=== PATIENT | female | born 1995 | race Two or more races ===

== ENCOUNTER 2019-03-21 15:48 | Emergency (ER) | payer MEDICAID, OTHER ==
[~2019-03-21] VITALS: Ht 162.6 cm; Wt 72.6 kg
[2019-03-21 15:55] VITALS: BP 138/71
== END 2019-03-21 16:42 | disposition home or self-care (01) ==
LOC: ER 15:48
DX: S90.111A Contusion of right great toe without damage to nail, initial encounter (principal); Z88.5 Allergy status to narcotic agent; W50.0XXA Accidental hit or strike by another person, initial encounter; Y93.66 Activity, soccer; Y99.8 Other external cause status; Y92.89 Other specified places as the place of occurrence of the external cause
CPT/HCPCS: 73630

== ENCOUNTER 2020-03-23 10:49 | Emergency (ER) | payer MEDICAID ==
[~2020-03-23] VITALS: Ht 162.6 cm; Wt 70.8 kg
[2020-03-23 14:33] VITALS: BP 117/75
== END 2020-03-23 15:02 | disposition home or self-care (01) ==
LOC: ER 10:49
DX: Z30.430 Encounter for insertion of intrauterine contraceptive device (principal); N83.202 Unspecified ovarian cyst, left side; Z88.5 Allergy status to narcotic agent
CPT/HCPCS: 76830; 76856

== ENCOUNTER 2022-04-30 20:37 | Emergency (ER) | payer MEDICAID ==
[~2022-04-30] VITALS: Ht 162.6 cm; Wt 88.6 kg
[2022-04-30 22:57] VITALS: BP 116/64
[2022-04-30] MEDS ORDERED: IBUPROFEN 800 MG TAB PO ONE (23:30)
== END 2022-05-01 01:09 | disposition left against medical advice (07) ==
LOC: ER 20:37
DX: S93.401A Sprain of unspecified ligament of right ankle, initial encounter (principal); Z88.6 Allergy status to analgesic agent; W22.8XXA Striking against or struck by other objects, initial encounter; Y93.89 Activity, other specified; Y92.89 Other specified places as the place of occurrence of the external cause; Y99.8 Other external cause status
CPT/HCPCS: 73610

== ENCOUNTER 2024-04-29 03:34 | Emergency (ER) | payer MEDICAID ==
[~2024-04-29] VITALS: Ht 162.6 cm; Wt 85.5 kg
[2024-04-29 04:11] VITALS: BP 132/84; PULSE 100; RESP 16; TEMP 97.8; O2SAT 98
== END 2024-04-29 05:05 | disposition home or self-care (01) ==
LOC: ER 03:34
DX: T19.2XXA Foreign body in vulva and vagina, initial encounter (principal); Z88.5 Allergy status to narcotic agent; W22.8XXA Striking against or struck by other objects, initial encounter; Y93.89 Activity, other specified; Y92.89 Other specified places as the place of occurrence of the external cause; Y99.8 Other external cause status